=== PATIENT | male | born 1960 | race Caucasian/White ===

== ENCOUNTER 2017-01-10 14:36 | Emergency (ER) | payer MEDICAID, OTHER ==
[~2017-01-10] VITALS: Ht 182.9 cm; Wt 78.0 kg
[2017-01-10 14:40] VITALS: Ht 182.9 cm; Wt 78.0 kg
[2017-01-10] MEDS ORDERED: OLANZAPINE (ODT) 5 MG TAB PO STA (15:19)
[2017-01-10] MEDS ORDERED: LORAZEPAM 1 MG TAB PO ONE (15:30)
[2017-01-10 16:28] LABS: ADD SCAN DIFF NO
[2017-01-10 16:31] LABS: BASOPHIL # 0.1 10^3/ul (0.0-0.1); BASOPHILS % 0.9 % (0.0-2.0); EOSINOPHILS # 0.1 10^3/ul (0.0-0.5); EOSINOPHILS % 2.4 % (0.0-7.0); HEMATOCRIT 46.4 % (42.0-52.0); HEMOGLOBIN 16.1 g/dl (14.0-18.0); LYMPHOCYTES # 1.8 10^3/ul (0.8-2.9); LYMPHOCYTES % 31.5 % (15.0-51.0); MEAN CORPUSCULAR HEMOGLOBIN 31.4 pg (29.0-33.0); MEAN CORPUSCULAR HGB CONC 34.7 g/dl (32.0-37.0); MEAN CORPUSCULAR VOLUME 90.4 fl (82.0-101.0); MEAN PLATELET VOLUME 10.1 fl (7.4-10.4); MONOCYTE # 0.7 10^3/ul (0.3-0.9); MONOCYTES % 11.3 % (0.0-11.0); NEUTROPHIL # 3.1 10^3/ul (1.6-7.5); NEUTROPHILS % 53.6 % (39.0-77.0); PLATELET COUNT 259 10^3/UL (140-415); RED BLOOD COUNT 5.13 10^6/ul (4.70-6.10); RED CELL DISTRIBUTION WIDTH 13.6 % (11.5-14.5); WHITE BLOOD COUNT 5.8 10^3/ul (4.8-10.8)
[2017-01-10 16:55] LABS: ALBUMIN/GLOBULIN RATIO 1.73; ANION GAP 17 (8-16)
[2017-01-10 16:56] LABS: BLOOD UREA NITROGEN 13 mg/dl (7-20); CARBON DIOXIDE 23 mmol/L (21-31); CHLORIDE 107 mmol/L (97-110); GLUCOSE 98 mg/dl (70-220); SODIUM 143 mmol/L (135-144)
[2017-01-10 16:57] LABS: ALANINE AMINOTRANSFERASE 29 IU/L (13-69); ALBUMIN 5.2 g/dl (3.3-4.9); ALKALINE PHOSPHATASE 79 IU/L (42-121); ASPARTATE AMINO TRANSFERASE 23 IU/L (15-46); BILIRUBIN,INDIRECT 0.5 mg/dl (0-1.1); BILIRUBIN,TOTAL 0.5 mg/dl (0.2-1.3); CALCIUM 9.4 mg/dl (8.4-10.2); CREATININE 1.01 mg/dl (0.61-1.24); TOTAL PROTEIN 8.2 g/dl (6.1-8.1)
[2017-01-10 16:58] LABS: ACETAMINOPHEN < 10.0 ug/ml (10.0-30.0); ETHANOL < 10.0 mg/dl; SALICYLATE < 1.0 mg/dl (5.0-30.0)
--- NOTE | 2017-01-10 17:43 | ERD ---
ER Documentation Chief Complaint Date/Time DATE: 01/10/17 TIME: 17:20 Chief Complaint INSOMNIA, OFF BIPOLAR MEDS, WANTS TO SPEAK WITH "PERSNAL THING" YESENIA HPI 56-year-old male with a history of bipolar disorder presenting with thoughts of killing himself. He states that he wants euthanasia so he never wakes up. He has been having thoughts of Satan in his head. He denies any visual hallucinations or homicidal ideations. He has had suicide attempts in the past. He denies any overdose today. He is taking his medications regularly but they are not helping him. ROS All systems reviewed and are negative except as per history of present illness. Allergies Allergies: Coded Allergies: codeine (Verified Allergy, Unknown, 01/10/17) PMhx/Soc Hx Psychiatric Problems: Yes (Bipolar disorder) Hx Alcohol Use: Yes Hx Substance Use: Yes Hx Tobacco Use: Yes Smoking Status: Current every day smoker FmHx Family History: No diabetes Physical Exam Vitals Vital Signs Date Time Temp Pulse Resp B/P Pulse Ox O2 Delivery O2 Flow Rate FiO2 01/10/17 14:40 97.8 72 18 112/79 99 Physical Exam Const: Unkempt, no apparent distress, nontoxic Head: Atraumatic Eyes: Normal Conjunctiva ENT: Normal External Ears, Nose and Mouth. Neck: Full range of motion..~ No meningismus. Resp: Clear to auscultation bilaterally Cardio: Regular rate and rhythm, no murmurs Abd: Soft, non tender, non distended. Normal bowel sounds Skin: No petechiae or rashes Back: No midline or flank tenderness Ext: No cyanosis, or edema Neur: Awake and alert and oriented 3, no facial asymmetry, moving all extremities, normal gait Psych: Depressed mood and Affect, poor judgment and insight, positive for suicidal ideation and auditory hallucinations, delusions present, no homicidal ideations or visual hallucinations Result Diagram: 01/10/17 1620 01/10/17 1620 Results 24 hrs Laboratory Tests Test 01/10/17 16:20 01/10/17 17:30 White Blood Count 5.810^3/ul Red Blood Count 5.1310^6/ul Hemoglobin 16.1g/dl Hematocrit 46.4% Mean Corpuscular Volume 90.4fl Mean Corpuscular Hemoglobin 31.4pg Mean Corpuscular Hemoglobin Concent 34.7g/dl Red Cell Distribution Width 13.6% Platelet Count 52895^3/UL Mean Platelet Volume 10.1fl Neutrophils % 53.6% Lymphocytes % 31.5% Monocytes % 11.3% Eosinophils % 2.4% Basophils % 0.9% Nucleated Red Blood Cells % 0.0/100WBC Neutrophils # 3.110^3/ul Lymphocytes # 1.810^3/ul Monocytes # 0.710^3/ul Eosinophils # 0.110^3/ul Basophils # 0.110^3/ul Nucleated Red Blood Cells # 0.010^3/ul Sodium Level 143mmol/L Potassium Level 4.0mmol/L Chloride Level 107mmol/L Carbon Dioxide Level 23mmol/L Anion Gap 17 Blood Urea Nitrogen 13mg/dl Creatinine 1.01mg/dl Glucose Level 98mg/dl Calcium Level 9.4mg/dl Total Bilirubin 0.5mg/dl Direct Bilirubin 0.00mg/dl Indirect Bilirubin 0.5mg/dl Aspartate Amino Transf (AST/SGOT) 23IU/L Alanine Aminotransferase (ALT/SGPT) 29IU/L Alkaline Phosphatase 79IU/L Total Protein 8.2g/dl Albumin 5.2g/dl Globulin 3.00g/dl Albumin/Globulin Ratio 1.73 Salicylates Level < 1.0mg/dl Acetaminophen Level < 10.0ug/ml Ethyl Alcohol Level < 10.0mg/dl Urine Color LT. YELLOW Urine Clarity CLEAR Urine pH 6.0 Urine Specific [place] 1.010 Urine Ketones NEGATIVE Urine Nitrite NEGATIVE Urine Bilirubin NEGATIVE Urine Urobilinogen 0.2 E.U./dL Urine Leukocyte Esterase TRACE Urine Microscopic RBC 2-5/HPF Urine Microscopic WBC 10-25/HPF Urine Bacteria RARE Urine Hemoglobin NEGATIVE Urine Glucose NEGATIVE% Urine Total Protein NEGATIVE Urine Opiates Screen NEGATIVE Urine Barbiturates NEGATIVE Urine Amphetamines Screen NEGATIVE Urine Benzodiazepines Screen NEGATIVE Urine Cocaine Screen NEGATIVE Urine Cannabinoids POSITIVE Current Medications Medications (Trade) Dose Ordered Sig/Rose [place] Route PRN Reason Start Time Stop Time Status Last Admin Dose Admin Olanzapine (Zyprexa Zydis) 10 mg ONCE STAT PO 01/10/17 15:19 01/10/17 15:22 DC 01/10/17 16:03 Lorazepam (Ativan) 1 mg ONCE ONCE PO 01/10/17 15:30 01/10/17 15:31 DC 6/13/17 16:03 Procedures/MDM Labs: No significant abnormalities, EtOH, salicylate, aspirin levels all within normal limits MDM Patient's behavioral symptoms have stabilized while in the department. I gave him Zyprexa and Ativan orally.Patient is medically cleared and appropriate for psychiatric evaluation and work up. He is not psychiatrically stable for discharge and will require a 5150 per my evaluation. No e/o neurologic, toxic, infectious, or metabolic cause. Patient evaluated by tele-psychiatrist, Dr. ashley, who recommended psychiatric inpatient hospitalization for the patient. Awaiting PET evaluation and placement Departure Diagnosis: Primary Impression: Suicidal ideation Additional Impression: Psychosis Psychosis type: unspecified psychosis type Qualified Code: F29 - Psychosis, unspecified psychosis type Condition: Serious JUVE CLEMENT MD Jan 10, 2017 17:39
[2017-01-10 17:51] LABS: ADD UMIC YES; URINE BILIRUBIN (Dip) NEGATIVE (NEGATIVE); URINE BLOOD (Dip) NEGATIVE (NEGATIVE); URINE COLOR LT. YELLOW (YELLOW); URINE GLUCOSE (Dip) NEGATIVE (NEGATIVE); URINE KETONES (Dip) NEGATIVE (NEGATIVE); URINE LEUKOCYTE ESTERASE (Dip) TRACE (NEGATIVE); URINE NITRITE (Dip) NEGATIVE (NEGATIVE); URINE TOTAL PROTEIN (Dip) NEGATIVE (NEGATIVE); URINE UROBILINOGEN (Dip) 0.2 E.U./dL (0.1-1.0)
[2017-01-10 18:09] LABS: BACTERIA,URINE RARE
[2017-01-10 18:14] LABS: BARBITURATES NEGATIVE (NEGATIVE); BENZODIAZEPINES NEGATIVE (NEGATIVE)
[2017-01-10 18:15] LABS: CANNABINOIDS POSITIVE (NEGATIVE); COCAINE NEGATIVE (NEGATIVE); OPIATES NEGATIVE (NEGATIVE)
--- NOTE | 2017-01-10 20:06 | PSY ---
Date/Time of Note Date/Time of Note DATE: 01/10/17 TIME: 20:01 Psychiatric Subjective Eval Consent Pt consented to telemedicine: Yes Subjective Evaluation Patient location: emergency Chief Complaint: INSOMNIA, OFF BIPOLAR MEDS, WANTS TO SPEAK WITH "PERSNAL THING" YESENIA Reason for consult: Suicidal ideation History of present illness Pt reports that he has been feeling suicidal lately. He is off his medications and has a long history of mental illness. He started feeling unsafe and is seeking patient care. Patient reports that he has been hospitalized many times and has attempte to take his life many times as well. He reports hearing demons in his head. He is not sleeping well, not focusing or concentrating well , and is not sure how to take care of himself. Patient does not believe he is safe out of the hospital. Past psychiatric history Bipolar versus schizophrenia. History is more suggestive of a schizophrenic disorder. However, difficult to say as he also has a drug use history. Hospitalization: yes Family History N/A Medical history Problems Medical Problems: (1) Psychosis Status: Acute (2) Suicidal ideation Status: Acute Allergies: Coded Allergies: codeine (Verified Allergy, Unknown, 01/10/17) Substance Abuse Substance abuse history: Yes Social History Marital status: single Level of education: HS DPA/Conservatorship: No Occupation/Assisted: Unemployed, homeless Psychiatric Objective Eval Physical Examination: Physical Examination: Applicable Sleep: Insomnia Energy: Decreased Interest: Decreased Mental Status Examination: Appearance: Poor Hygiene Eye Contact: Fair Psychomotor Activity: Normal Behavior: Cooperative Speech: Soft AFFECT: Flat Mood: Depressed Though Process: Linear Thought Content: Hallucinations Suicidal: Yes Homicidal: No On 72 hour hold: No Orientation: x3 Cognition: Alert Insight: Mild Judgement: Moderate Laboratory Results Laboratory Tests Test 01/10/17 16:20 01/10/17 17:30 White Blood Count 5.810^3/ul Red Blood Count 5.1310^6/ul Hemoglobin 16.1g/dl Hematocrit 46.4% Mean Corpuscular Volume 90.4fl Mean Corpuscular Hemoglobin 31.4pg Mean Corpuscular Hemoglobin Concent 34.7g/dl Red Cell Distribution Width 13.6% Platelet Count 02282^3/UL Mean Platelet Volume 10.1fl Neutrophils % 53.6% Lymphocytes % 31.5% Monocytes % 11.3% Eosinophils % 2.4% Basophils % 0.9% Nucleated Red Blood Cells % 0.0/100WBC Neutrophils # 3.110^3/ul Lymphocytes # 1.810^3/ul Monocytes # 0.710^3/ul Eosinophils # 0.110^3/ul Basophils # 0.110^3/ul Nucleated Red Blood Cells # 0.010^3/ul Sodium Level 143mmol/L Potassium Level 4.0mmol/L Chloride Level 107mmol/L Carbon Dioxide Level 23mmol/L Anion Gap 17 Blood Urea Nitrogen 13mg/dl Creatinine 1.01mg/dl Glucose Level 98mg/dl Calcium Level 9.4mg/dl Total Bilirubin 0.5mg/dl Direct Bilirubin 0.00mg/dl Indirect Bilirubin 0.5mg/dl Aspartate Amino Transf (AST/SGOT) 23IU/L Alanine Aminotransferase (ALT/SGPT) 29IU/L Alkaline Phosphatase 79IU/L Total Protein 8.2g/dl Albumin 5.2g/dl Globulin 3.00g/dl Albumin/Globulin Ratio 1.73 Salicylates Level < 1.0mg/dl Acetaminophen Level < 10.0ug/ml Ethyl Alcohol Level < 10.0mg/dl Urine Color LT. YELLOW Urine Clarity CLEAR Urine pH 6.0 Urine Specific [place] 1.010 Urine Ketones NEGATIVE Urine Nitrite NEGATIVE Urine Bilirubin NEGATIVE Urine Urobilinogen 0.2 E.U./dL Urine Leukocyte Esterase TRACE Urine Microscopic RBC 2-5/HPF Urine Microscopic WBC 10-25/HPF Urine Bacteria RARE Urine Hemoglobin NEGATIVE Urine Glucose NEGATIVE% Urine Total Protein NEGATIVE Urine Opiates Screen NEGATIVE Urine Barbiturates NEGATIVE Urine Amphetamines Screen NEGATIVE Urine Benzodiazepines Screen NEGATIVE Urine Cocaine Screen NEGATIVE Urine Cannabinoids POSITIVE Assessment and Plan Assessment/Diagnosis [place] I: Schizophrenia F20.9 Recommendation/Plan Medication Management Per inpatient psychiatry. Can use Zyprexa 5 to 10mg in ER until patient transfer to inpatient unit. Psychotherapy N/A Pt. Caregiver/Family Education N/A Follow-up/Disposition Recommend 5150 and transfer to inpatient psychiatry. Pt with suicidal ideation and does not feel safe out of the hospital 5150 Recommendation: Place [place] LILIAM CUEVAS Jan 10, 2017 20:06
[2017-01-11] MEDS ORDERED: OLANZAPINE 5 MG TAB PO ONE (00:30)
[2017-01-11] MEDS ORDERED: LORAZEPAM 1 MG TAB PO ONE (00:30)
[2017-01-11] MEDS ORDERED: B CO1CAP PO (01:33)
[2017-01-11] MEDS ORDERED: ASCO500C7 PO (01:33)
[2017-01-11 06:45] VITALS: BP 112/68; PULSE 58; RESP 17; TEMP 98.3
== END 2017-01-11 08:15 ==
LOC: E/R 14:36
DX: R45.851 Suicidal ideations (principal); R40.2252 Coma scale, best verbal response, oriented, at arrival to emergency department; F29 Unspecified psychosis not due to a substance or known physiological condition; F17.210 Nicotine dependence, cigarettes, uncomplicated; R40.2142 Coma scale, eyes open, spontaneous, at arrival to emergency department; R40.2362 Coma scale, best motor response, obeys commands, at arrival to emergency department
CPT/HCPCS: 36415; 80053; 80306; 80307; 81001; 85025; Z7502; Z7610; 99285

== ENCOUNTER 2017-01-18 19:06 | Emergency (ER) | payer MEDICAID ==
[~2017-01-18] VITALS: Wt 79.0 kg
[~2017-01-18 19:06] MED LIST: B CO1CAP PO
--- NOTE | 2017-01-18 21:10 | ERA ---
ER Documentation Chief Complaint Date/Time DATE: 01/18/17 TIME: 21:10 Chief Complaint Suicidal Ideation, wants cop examiner to shoot him. and wants bed d/t back pain HPI The patient is a 56-year-old male, presenting to the ER because of suicidal ideation. He wants the door to door selling distributor to shoot him. He denies auditory, visual hallucination, homicidal ideation, complains of low back pain. He denies headache, neck pain, chest pain, abdominal pain, vomiting, dysuria, diarrhea. He was admitted to psychiatric hospital recently on January 10, 2017 Past medical history: Schizophrenia ROS All systems reviewed and are negative except as per history of present illness. Medications Home Meds Reported Medications B Complex with Vitamin C (Vitamin B-Complex with Vit C) 1 Each Capsule, 1 EACH PO, CAP 01/11/17 Discontinued Reported Medications Ascorbic Acid* (Vitamin C*) 500 Mg Capsule.sa, 500 MG PO DAILY, CAP 01/11/17 Allergies Allergies: Coded Allergies: codeine (Verified Allergy, Unknown, 01/10/17) PMhx/Soc Hx Psychiatric Problems: Yes (Bipolar disorder) Hx Alcohol Use: Yes Hx Substance Use: Yes Hx Tobacco Use: Yes Physical Exam Vitals Vital Signs Date Time Temp Pulse Resp B/P Pulse Ox O2 Delivery O2 Flow Rate FiO2 01/18/17 19:46 97.5 77 20 138/99 97 Physical Exam Const: No acute distress. Unkempt Head: Atraumatic. Eyes: Normal Conjunctiva. ENT: Normal External Ears, Nose and Mouth. Neck: Full range of motion. No meningismus. Resp: Clear to auscultation bilaterally. Cardio: Regular rate and rhythm. Abd: Soft, non distended, normal bowel sounds, non tender. Skin: No petechiae or rashes. Back: No midline or flank tenderness. Ext: No cyanosis, or edema. Neur: Awake and alert. No focal deficit Psych: Depressed and suicidal Result Diagram: 01/18/17212901/18/172129 Results 24 hrs Laboratory Tests Test 01/18/17 21:30 White Blood Count 6.110^3/ul Red Blood Count 4.8010^6/ul Hemoglobin 15.4g/dl Hematocrit 43.1% Mean Corpuscular Volume 89.8fl Mean Corpuscular Hemoglobin 32.1pg Mean Corpuscular Hemoglobin Concent 35.7g/dl Red Cell Distribution Width 13.4% Platelet Count 06782^3/UL Mean Platelet Volume 10.1fl Neutrophils % 53.4% Lymphocytes % 30.3% Monocytes % 12.3% Eosinophils % 3.1% Basophils % 0.7% Nucleated Red Blood Cells % 0.0/100WBC Neutrophils # 3.310^3/ul Lymphocytes # 1.810^3/ul Monocytes # 0.810^3/ul Eosinophils # 0.210^3/ul Basophils # 0.010^3/ul Nucleated Red Blood Cells # 0.010^3/ul Sodium Level 138mmol/L Potassium Level 3.9mmol/L Chloride Level 103mmol/L Carbon Dioxide Level 25mmol/L Anion Gap 14 Blood Urea Nitrogen 19mg/dl Creatinine 0.95mg/dl Glucose Level 85mg/dl Calcium Level 9.5mg/dl Total Bilirubin 0.4mg/dl Direct Bilirubin 0.00mg/dl Indirect Bilirubin 0.4mg/dl Aspartate Amino Transf (AST/SGOT) 24IU/L Alanine Aminotransferase (ALT/SGPT) 35IU/L Alkaline Phosphatase 72IU/L Total Protein 7.7g/dl Albumin 5.0g/dl Globulin 2.70g/dl Albumin/Globulin Ratio 1.85 Salicylates Level < 1.0mg/dl Urine Opiates Screen Negative Acetaminophen Level < 10.0ug/ml Urine Barbiturates Negative Urine Amphetamines Screen Negative Urine Benzodiazepines Screen Negative Urine Cocaine Screen Negative Urine Cannabinoids Positive Ethyl Alcohol Level < 10.0mg/dl Procedures/MDM MEDICAL MAKING DECISION: The patient is a 56-year-old male, presenting to the ER because of acute suicidal ideation. The differential diagnoses considered include but are not limited to medical noncompliance, drug-induced psychosis, psychosis, decompensated psychiatric illness Departure Diagnosis: Primary Impression: Suicidal ideation Additional Impressions: Schizophrenia Substance abuse Condition: Stable Comments He is awaiting for telepsychiatrist evaluation The patient's blood pressure was elevated (>120/80) but appears stable without evidence of hypertension emergency or urgency. The patient was counseled about the risks of hypertension and urged to pursue outpatient monitoring and therapy within a week with their primary care physician. BOBBY SALAS MD Jan 18, 2017 21:10
[2017-01-18 21:47] LABS: ADD SCAN DIFF NO
[2017-01-18 21:49] LABS: BASOPHILS % 0.7 % (0.0-2.0); EOSINOPHILS # 0.2 10^3/ul (0.0-0.5); EOSINOPHILS % 3.1 % (0.0-7.0); HEMATOCRIT 43.1 % (42.0-52.0); HEMOGLOBIN 15.4 g/dl (14.0-18.0); LYMPHOCYTES # 1.8 10^3/ul (0.8-2.9); LYMPHOCYTES % 30.3 % (15.0-51.0); MEAN CORPUSCULAR HEMOGLOBIN 32.1 pg (29.0-33.0); MEAN CORPUSCULAR HGB CONC 35.7 g/dl (32.0-37.0); MEAN CORPUSCULAR VOLUME 89.8 fl (82.0-101.0); MEAN PLATELET VOLUME 10.1 fl (7.4-10.4); MONOCYTE # 0.8 10^3/ul (0.3-0.9); MONOCYTES % 12.3 % (0.0-11.0); NEUTROPHIL # 3.3 10^3/ul (1.6-7.5); NEUTROPHILS % 53.4 % (39.0-77.0); PLATELET COUNT 234 10^3/UL (140-415); RED CELL DISTRIBUTION WIDTH 13.4 % (11.5-14.5); WHITE BLOOD COUNT 6.1 10^3/ul (4.8-10.8)
[2017-01-18 22:15] LABS: ALANINE AMINOTRANSFERASE 35 IU/L (13-69); ALKALINE PHOSPHATASE 72 IU/L (42-121); ANION GAP 14 (8-16); ASPARTATE AMINO TRANSFERASE 24 IU/L (15-46); BILIRUBIN,INDIRECT 0.4 mg/dl (0-1.1); BILIRUBIN,TOTAL 0.4 mg/dl (0.2-1.3); BLOOD UREA NITROGEN 19 mg/dl (7-20); CALCIUM 9.5 mg/dl (8.4-10.2); CARBON DIOXIDE 25 mmol/L (21-31); CHLORIDE 103 mmol/L (97-110); CREATININE 0.95 mg/dl (0.61-1.24); GLUCOSE 85 mg/dl (70-220); POTASSIUM 3.9 mmol/L (3.5-5.1); SODIUM 138 mmol/L (135-144); TOTAL PROTEIN 7.7 g/dl (6.1-8.1)
[2017-01-18 22:16] LABS: ACETAMINOPHEN < 10.0 ug/ml (10.0-30.0); ALBUMIN/GLOBULIN RATIO 1.85; ETHANOL < 10.0 mg/dl; SALICYLATE < 1.0 mg/dl (5.0-30.0)
[2017-01-18 22:20] LABS: BARBITURATES Negative (NEGATIVE); BENZODIAZEPINES Negative (NEGATIVE); CANNABINOIDS Positive (NEGATIVE); COCAINE Negative (NEGATIVE); OPIATES Negative (NEGATIVE)
--- NOTE | 2017-01-18 23:05 | PSY ---
Date/Time of Note Date/Time of Note DATE: 01/18/17 TIME: 22:51 Psychiatric Subjective Eval Consent Pt consented to telemedicine: Yes Subjective Evaluation Patient location: emergency Chief Complaint: Suicidal Ideation, wants copy center associate to shoot him. and wants bed d/t back pain Reason for consult: SUICIDAL IDEATION Medical history Problems Medical Problems: (1) Psychosis Status: Acute (2) Schizophrenia Status: Acute (3) Substance abuse Status: Acute (4) Suicidal ideation Status: Acute (5) Suicidal ideation Status: Acute Allergies: Coded Allergies: codeine (Verified Allergy, Unknown, 01/10/17) Psychiatric Objective Eval Mental Status Examination: Laboratory Results Laboratory Tests Test 01/18/17 21:30 White Blood Count 6.110^3/ul Red Blood Count 4.8010^6/ul Hemoglobin 15.4g/dl Hematocrit 43.1% Mean Corpuscular Volume 89.8fl Mean Corpuscular Hemoglobin 32.1pg Mean Corpuscular Hemoglobin Concent 35.7g/dl Red Cell Distribution Width 13.4% Platelet Count 27591^3/UL Mean Platelet Volume 10.1fl Neutrophils % 53.4% Lymphocytes % 30.3% Monocytes % 12.3% Eosinophils % 3.1% Basophils % 0.7% Nucleated Red Blood Cells % 0.0/100WBC Neutrophils # 3.310^3/ul Lymphocytes # 1.810^3/ul Monocytes # 0.810^3/ul Eosinophils # 0.210^3/ul Basophils # 0.010^3/ul Nucleated Red Blood Cells # 0.010^3/ul Sodium Level 138mmol/L Potassium Level 3.9mmol/L Chloride Level 103mmol/L Carbon Dioxide Level 25mmol/L Anion Gap 14 Blood Urea Nitrogen 19mg/dl Creatinine 0.95mg/dl Glucose Level 85mg/dl Calcium Level 9.5mg/dl Total Bilirubin 0.4mg/dl Direct Bilirubin 0.00mg/dl Indirect Bilirubin 0.4mg/dl Aspartate Amino Transf (AST/SGOT) 24IU/L Alanine Aminotransferase (ALT/SGPT) 35IU/L Alkaline Phosphatase 72IU/L Total Protein 7.7g/dl Albumin 5.0g/dl Globulin 2.70g/dl Albumin/Globulin Ratio 1.85 Salicylates Level < 1.0mg/dl Urine Opiates Screen Negative Acetaminophen Level < 10.0ug/ml Urine Barbiturates Negative Urine Amphetamines Screen Negative Urine Benzodiazepines Screen Negative Urine Cocaine Screen Negative Urine Cannabinoids Positive Ethyl Alcohol Level < 10.0mg/dl Assessment Additional comments: IDENTIFYING INFORMATION: 56 year old Male patient who is currently located at the hospital and for whom psychiatric consultation was requested. SOURCES OF INFORMATION: The patient who appears to be somewhat reliable and the medical records; the nursing staff. CHIEF COMPLAINT: "tired of living". HISTORY OF PRESENT ILLNESS: The patient was interviewed via telemedicine in the presence of and under the supervision of nursing staff of the hospital. The consent to conducting this interview via telemedicine was obtained by the nursing staff at the hospital. RN January reports that the patient presents with SI with plan to have police to shoot. According to the emergency room physician's note, the patient presented with suicidal ideation, thinking of having police shoot him. The patient has a reported history of schizophrenia. The patient reports that he is tired of living, and thought of having police shoot him. Has been thinking of suicide for the past 6 months. Admits to having persistent depressed, having anhedonia, insomnia, fatigue, AH telling him to kill himself. Reports that the devil is after him. Denies having low appetite. The patient reports drinking 1-2 drinks every other day. Last drink was yesterday. H/o alcohol withdrawal seizures in the past. He used to drink heavily until 1 year ago. The patient denies using alcohol heavily lately. The patient reports using meth occasionally. Last use was 2 weeks ago. The patient reports using MJ occasionally. Last use was 3 days ago. The patient denies using any other substances. In terms of past psychiatric history, the patient reports having a history of past psychiatric hospitalizations. The patient reports having a history of past suicide attempts. PAST MEDICAL HISTORY: None. CURRENT MEDICATIONS: none (is supposed to take seroquel, remeron). ALLERGIES TO MEDICATIONS: NKDA. SOCIAL HISTORY: lives with his dog, single, not employed. LABORATORY TESTS: CBC WNL, CMP with albumin of 5.0, no alcohol detected, UDS + MJ. REVIEW OF SYSTEMS: Constitutional (e.g., fever, weight loss): negative; Eyes, Ears, Nose, Mouth, Throat: negative; Cardiovascular: negative; Respiratory: negative; Gastrointestinal: negative; Genitourinary: negative; Musculoskeletal: negative; Integumentary (skin and/or breast): negative; Neurological: negative; Psychiatric: as per HPI; Endocrine: negative; Hematologic/Lymphatic: negative; Allergic/Immunologic: negative. MENTAL STATUS EXAMINATION: General Appearance and Behavior: Calm, cooperative with the interview, pleasant with the current interviewer, makes good eye contact, poorly groomed, no abnormal movements noted. Speech: Regular rate, regular rhythm, normal latency, normal volume, normal amount. Flow of thought: sequential, logical, goal-directed. Content of thought: positive for auditory hallucinations, no visual hallucinations, positive for paranoid delusions, positive for suicidal ideation; no homicidal ideation. Mood: "depressed". Affect: dysthymic, dysphoric, not reactive. Attention: normal based on the interview. Insight: fair. Judgment: poor. Memory: normal based on the interview. Sensorium: alert and oriented to person, place, January 19, 2017. ASSESSMENT: The patient's presentation and history are consistent with the diagnosis of unspecified psychotic disorder, unspecified depressive disorder, alcohol use disorder, stimulant use disorder, cannabis use disorder. The patient presents with psychotic and depressive symptoms in the context of alcohol, stimulant, cannabis use, as well as medication noncompliance. [place] I: unspecified psychotic disorder, unspecified depressive disorder, alcohol use disorder, stimulant use disorder, cannabis use disorder. [place] II: Deferred. [place] III: see PMH. [place] IV: social stressors. [place] V: GAF: 10. PLAN: - Medication management: Would recommend starting alcohol withdrawal protocol per CIWA. Would also consider administering thiamine, folic acid, multivitamin. Would start remeron 15 mg po qhs, and seroquel 50 mg po qhs. Would start haloperidol 5 mg IM PRN severe agitation q4 hours. Would start diphenhydramine 50 mg IM PRN severe agitation q4 hours. Would start lorazepam 2 mg IM PRN severe agitation q4 hours Will defer to the inpatient psychiatry team for other medication changes. - Labs: No other laboratory tests are needed at this time. - Psychotherapy: Provided supportive psychotherapy and psychoeducation. - Disposition: Would recommend voluntary admission to the inpatient psychiatric unit as the patient would benefit from such an intervention so long as the patient has been cleared medically for admission to psychiatry. The patient is agreeable to being hospitalized in the inpatient psychiatric unit at this time. Would place on suicide precautions. I called the emergency room physician who is taking care of the patient to discuss about the above plan but the emergency room physician is not available at this time. I left my phone number with the hospital staff requesting a callback so that the emergency room physician can reach me when they become available. AMINTA LANDRY MD Jan 18, 2017 23:05
[2017-01-18 23:49] LABS: ADD UMIC YES; UR ASCORBIC ACID NEGATIVE (NEGATIVE); UR BILIRUBIN (Dip) NEGATIVE (NEGATIVE); UR BLOOD (Dip) NEGATIVE (NEGATIVE); UR CLARITY CLEAR (CLEAR); UR COLOR YELLOW (YELLOW); UR GLUCOSE (Dip) NEGATIVE (NEGATIVE); UR KETONES (Dip) NEGATIVE (NEGATIVE); UR LEUKOCYTE ESTERASE (Dip) NEGATIVE Leu/ul (NEGATIVE); UR NITRITE (Dip) NEGATIVE (NEGATIVE); UR RBC 0 /HPF (0-5); UR SPECIFIC GRAVITY (Dip) 1.025 (1.003-1.030); UR TOTAL PROTEIN (Dip) 1+ mg/dl (NEGATIVE); UR UROBILINOGEN (Dip) NEGATIVE (NEGATIVE)
[2017-01-19] MEDS ORDERED: LORAZEPAM 1 MG TAB PO ONE ×2 (07:30→09:00)
[2017-01-19] MEDS ORDERED: RISPERIDONE 2 MG TAB PO ONE (09:00)
[2017-01-19 09:56] VITALS: BP 158/97; PULSE 117; RESP 16
[2017-01-19] MEDS ORDERED: QUETIAPINE 25 MG TAB PO SCH (21:00)
[2017-01-19] MEDS ORDERED: MIRTAZAPINE 15 MG TAB PO SCH (21:00)
== END 2017-01-19 09:58 ==
LOC: E/R 19:06
DX: R45.851 Suicidal ideations (principal); F20.9 Schizophrenia, unspecified; F19.10 Other psychoactive substance abuse, uncomplicated; Z87.891 Personal history of nicotine dependence
CPT/HCPCS: 80053; 80306; 80307; 81001; 85025; Z7610; 99285